=== PATIENT | male | born 1950 | race African-American/Black ===

== ENCOUNTER 2017-09-27 08:23 | Inpatient (IN) | payer MEDICARE ==
[2017-09-26 12:27] LABS: BASOPHILS # (AUTO) 0.1 (0.0-0.1); BASOPHILS % 0.7 % (0.0-1.0); EOSINOPHILS # (AUTO) 0.1 (0.0-0.4); EOSINOPHILS % 0.5 % (0.0-6.0); HEMOGLOBIN 16.3 g/dL (14.0-18.0); LYMPHOCYTES # (AUTO) 2.9 (1.0-3.2); LYMPHOCYTES % 31.2 % (18.0-39.1); MEAN CORPUSCULAR HEMOGLOBIN 34.2 pg (28-32); MEAN CORPUSCULAR HGB CONC 34.7 g/dL (31-35); MEAN CORPUSCULAR VOLUME 98.5 fL (81-99); MONOCYTES # (AUTO) 0.9 (0.2-0.8); MONOCYTES % 9.7 % (4.4-11.3); NEUTROPHILS # (AUTO) 5.4 (2.1-6.9); NEUTROPHILS % 57.6 % (38.7-80.0); PLATELET COUNT 130 x10e3/uL (140-360); RED BLOOD COUNT 4.77 x10e6/uL (4.3-5.7); RED CELL DISTRIBUTION WIDTH 12.8 % (11.7-14.4)
--- NOTE | 2017-09-26 12:40 | Diagnostic Imaging Report ---
PROCEDURE:CHEST 2 VIEWS TECHNIQUE:PA and lateral chest INDICATION:Preoperative evaluation for right hip surgery COMPARISON:None. FINDINGS: The lungs are clear and symmetrically inflated. No pleural effusions. Normal heart size. Tortuous descending thoracic aorta with mild aortic arch calcification. Incidentally 2-lead pacemaker; leads intact. Cholecystectomy clips. Acutely intact skeleton. CONCLUSION: Indwelling pacemaker without acute abnormality. Dictated by: Ramy Goode M.D. on 09/26/2017 at 12:43 Electronically approved by: Ramy Goode M.D. on 09/26/2017 at 12:43
[~2017-09-27] VITALS: Ht 170.2 cm; Wt 113.4 kg
[~2017-09-27 08:23] MED LIST: ALLOPURINOL100 MG PO; INDOMETHACIN25 MG PO; LOTREL 5-10 MG1 EACH PO; ROPIVACAINE 246.25 MG, EPINEPHRINE HCL 1:1000 0.5 MG, CLONIDINE HCL 0.08 MG, KETOROLAC ... INJ ONE
--- OUTSIDE RECORDS SUMMARY | 2017-09-27 08:25 | XMS REPORT | Clinical Summary ---
Author Author [facility] Address Unknown Phone Unavailable Care Team Providers Care Mold Technician Name Role Phone Spenser Sadler MD PCP Allergies Active Allergy Reactions Severity Noted Date Comments Sulfa (Sulfonamide 06/01/2016 Antibiotics) Current Medications Prescription Sig. Disp. Refills Start End Date Status Date ALLOPURINOL ORAL Take by mouth. Active amlodipine-benazepril Take 1 capsule by mouth Active (LOTREL) 10-20 mg per daily. capsule INDOMETHACIN ORAL Take by mouth. Active tamsulosin (FLOMAX) 0.4 Take 0.4 mg by mouth Active mg capsule,extended daily. release 24hr sodium,potassium,mag Please use as directed 2 Bottle 0 11/06/19 Discontin sulfates (SUPREP BOWEL 17 17 ued PREP KIT) 17.5-3.13-1.6 gram recon soln Active Problems Not on file Encounters Date Type Specialty Care Team Description 01/10/2017 [facility] Gastroenterology Juanjose Wallace MD Colon cancer screening Encounter 01/10/2017 Anesthesia Gastroenterology Nichol Godinez MD Event 01/10/2017 Procedure Pass Gastroenterology 01/10/2017 Surgery Gastroenterology Juanjose Wallace MD COLONOSCOPY with polypectomy 11/29/2016 Procedure Pass Gastroenterology 11/05/2016 Office Visit Gastroenterology Juanjose Wallace MD Colon cancer screening (Primary Dx); Abnormal liver function test; Chronic hepatitis C without hepatic coma after 09/26/2016 Family History Medical History Relation Name Comments No Known Problems Brother Stroke Father No Known Problems Maternal Aunt No Known Problems Maternal Grandfather No Known Problems Maternal Grandmother No Known Problems Maternal Uncle Diabetes Mother Heart disease Mother No Known Problems Paternal Aunt No Known Problems Paternal Grandfather No Known Problems Paternal Grandmother No Known Problems Paternal Uncle No Known Problems Sister Thompson's esophagus Neg Hx Breast cancer Neg Hx Celiac disease Neg Hx Cirrhosis Neg Hx Colon cancer Neg Hx Colon polyps Neg Hx Crohn's disease Neg Hx Cystic fibrosis Neg Hx Eating disorder Neg Hx Esophageal cancer Neg Hx GERD Neg Hx OIL LEASE BUYER Cancer Neg Hx Hemochromatosis Neg Hx Inflammatory bowel Neg Hx disease Irritable bowel syndrome Neg Hx Liver cancer Neg Hx Liver disease Neg Hx Pancreatic cancer Neg Hx Pancreatitis Neg Hx Rectal cancer Neg Hx Stomach cancer Neg Hx Ulcerative colitis Neg Hx Relation Name Status Comments Brother Father Maternal Aunt Maternal Grandfather Maternal Grandmother Maternal Uncle Mother Paternal Aunt Paternal Grandfather Paternal Grandmother Paternal Uncle Sister Social History Tobacco Use Types Packs/Day Years Used Date Current Every Day Smoker 0.5 Alcohol Use Drinks/Week oz/Week Comments No QUIT 1 YR AGO Sex Assigned at Date Recorded Not on file Last Filed Vital Signs Vital Sign Reading Time Taken Blood Pressure 160/93 01/10/2017 10:00 AM CDT Pulse 77 01/10/2017 10:00 AM CDT Temperature 37 C (98.6 F) 01/10/2017 9:35 AM CDT Respiratory Rate 23 01/10/2017 10:00 AM CDT Oxygen Saturation 97% 01/10/2017 10:00 AM CDT Inhaled Oxygen - - Concentration Weight 136 kg (300 lb) 01/10/2017 8:13 AM CDT Height 170.2 cm (5' 7") 01/10/2017 8:13 AM CDT Body Mass Index 46.99 01/10/2017 8:13 AM CDT Plan of Treatment Health Maintenance Due Date Last Done Comments COLON CANCER SCREENING 2000 SHINGRIX VACCINE (#1) 2000 ZOSTER VACCINE 2010 PNEUMOCOCCAL 2015 POLYSACCHARIDE VACCINE AGE 65 AND OVER PNEUMOCOCCAL-13 2015 INFLUENZA VACCINE 11/23/2017 Procedures Procedure Name Priority Date/Time Associated Diagnosis Comments COLONOSCOPY with 01/10/2017 Colon cancer screening polypectomy 9:00 AM CDT after 09/26/2016 Results * Surgical pathology request (01/10/2017 12:46 PM) Component Value Ref Range Surgical pathology report See link below for PDF Lab Report Specimen Performing [place] [facility] [facility] [address] [address] after 09/26/2016 Insurance Payer Benefit Subscriber ID Type Phone Address Plan / Group [facility] MEDICARE UNITED/CAR xxxxxxxxx HMO E LESLIE FUNEZ
--- OUTSIDE RECORDS SUMMARY | 2017-09-27 08:25 | XMS REPORT ---
Author Author [facility] Address Unknown Phone Unavailable Care Team Providers Care Eye Technician Name Role Phone ELIZA JONES Unavailable Unavailable Problems This patient has no known problems. Allergies, Adverse Reactions, Alerts This patient has no known allergies or adverse reactions. Medications This patient has no known medications. Results Test Description Test Time Test Comments Text Results Atomic Results Result Comments CHEST 2 VIEWS [place] [address] Patient Name: BANDAR ALMANZAR MR #: [id number] : 1950 Age/Sex: 67/M Req #: [id number] Adm Physician: Ordered by: JANAE HERNANDEZ MD Report #: [id number] Location: OR Room/Bed: Procedure: DX/ CHEST 2 VIEWS Exam Date: 09/26/17 Exam Time: 1225 REPORT STATUS: Signed PROCEDURE: CHEST 2 VIEWS TECHNIQUE: PA and lateral chest INDICATION: Preoperative evaluation for right hip surgery COMPARISON: None. FINDINGS: The lungs are clear and symmetrically inflated. No pleural effusions. Normal heart size. Tortuous descending thoracic aorta with mild aortic arch calcification. Incidentally 2-lead pacemaker; leads intact. Cholecystectomy clips. Acutely intact skeleton. CONCLUSION: Indwelling pacemaker without acute abnormality. Dictated by: Ban Goode M.D. on 09/26/2017 at 12:43 Electronically approved by: Ban Goode M.D. on 09/26/2017 at 12:43 Dictated By: BAN GOODE MD [id number] Transcribed By: JANEEN on 09/26/17 1243 COPY TO: JANAE HERNANDEZ MD
[2017-09-27] MEDS ORDERED: CELECOXIB 200 MG CAP ONE (08:49)
[2017-09-27] MEDS ORDERED: CEFAZOLIN SOD 2 GM/D5W 50ML 50 ML IV ONE (08:50)
[2017-09-27] MEDS ORDERED: DEXAMETHASONE SOD PHOS 10 MG/1 ML VIAL ONE (08:50)
[2017-09-27] MEDS ORDERED: GABAPENTIN 300 MG CAP ONE (08:50)
[2017-09-27] MEDS ORDERED: BUPIVACAINE 7.5MG/ML /DEXTROSE 82.5MG/ML 2 ML AMP INJ ONE (09:31)
[2017-09-27] MEDS ORDERED: TRANEXAMIC ACID 1,000 MG/10 ML ML ONE (09:49)
[2017-09-27] MEDS ORDERED: MUPIROCIN 2% OINT 22 GM TUBE ONE (09:49)
[2017-09-27] MEDS ORDERED: BACITRACIN 50,000 UNIT VIAL ONE (09:50)
[2017-09-27] MEDS ORDERED: ZOLPIDEM TARTRATE 5 MG TAB PO PRN (12:00)
[2017-09-27] MEDS ORDERED: HYDROCODONE/APAP 5MG-325MG TAB PO PRN (12:00)
[2017-09-27] MEDS: ACETAMINOPHEN 1000 MG/100 ML IV SCH ×2 (12:00→16:40)
[2017-09-27] MEDS ORDERED: DOCUSATE SODIUM 100 MG CAP PO PRN (12:00)
[2017-09-27] MEDS ORDERED: DIPHENHYDRAMINE HCL INJ 50 MG/ML VIAL IM/IV PRN (12:00)
[2017-09-27] MEDS ORDERED: PROMETHAZINE HCL (IM) 25 MG/ML VIAL INJ PRN (12:00)
[2017-09-27] MEDS ORDERED: KETOROLAC TROMETHAMINE 30 MG/ML VIAL IV PRN (12:00)
[2017-09-27] MEDS ORDERED: ACETAMINOPHEN 650 MG SUPP PR PRN (12:00)
[2017-09-27] MEDS ORDERED: ONDANSETRON HCL INJ 2 MG/ML VIAL IV PRN (12:00)
--- OUTSIDE RECORDS SUMMARY | 2017-09-27 12:29 | XMS REPORT | Clinical Summary ---
Author Author [facility] Address Unknown Phone Unavailable Care Team Providers Care Tail Puller Name Role Phone Spenser Sadler MD PCP [...] Date Type Specialty Care Team Description 01/10/2017 [facility] Gastroenterology Juanjose Wallace MD Colon cancer screening [...] Esophageal cancer Neg Hx GERD Neg Hx MYSQL DATABASE ADMINISTRATOR Cancer Neg Hx Hemochromatosis Neg Hx Inflammatory [...] for PDF Lab Report Specimen Performing Laboratory [facility] [place] [facility]PARTMENT OF PATHOLOGY AND GENOMIC MEDICINE [place] [place] [place] [address] after 09/26/2016 Insurance Payer Benefit Subscriber ID Type Phone Address Plan / Group [facility] MEDICARE UNITED/CAR xxxxxxxxx HMO E LESLIE FUNEZ
[2017-09-27] MEDS ORDERED: CEFAZOLIN SOD 1 GM/NS 50ML 50 ML IV SCH (14:00)
[2017-09-27] MEDS: SODIUM CHLORIDE 0.9% 1000ML 1,000 ML IV SCH ×2 (14:09→21:57)
[2017-09-27] MEDS: HYDROCODONE/APAP 7.5MG-325MG 1 EA TAB PO PRN ×2 (14:25→19:50)
[2017-09-27 15:32] VITALS: BP 125/74
[2017-09-27 16:00] VITALS: BP 134/72
[2017-09-27] MEDS: ASPIRIN 325 MG TAB PO SCH (16:40)
[2017-09-27] MEDS: CEFAZOLIN SOD 1 GM VIAL IV SCH (16:40)
[2017-09-27] MEDS: CELECOXIB 200 MG CAP PO SCH (16:40)
--- NOTE | 2017-09-27 16:57 | Diagnostic Imaging Report ---
PROCEDURE:X-RAY PELVIS, AP VIEW COMPARISON:None. INDICATIONS:POST OPERATIVE LEFT HIP SURGERY FINDINGS: See conclusion. CONCLUSION: 1. Status post left total hip replacement with intact orthopedic hardware. Satisfactory alignment on this limited AP view. 2. Postoperative soft tissue gas, drainage tube and metallic jaiden. 3. Respiratory structures is grossly unremarkable, without acute, displaced fracture or dislocation. Luke Farrar M.D. Dictated by: Luke Farrar M.D. on 09/27/2017 at 17:00 Electronically approved by: Luke Farrar M.D. on 09/27/2017 at 17:00
[2017-09-27] MEDS ORDERED: CELECOXIB 100 MG CAP PO SCH (17:00)
[2017-09-27 20:00] VITALS: BP 119/63
[2017-09-27] MEDS ORDERED: LIDOCAINE HCL 2% LOCAL INJ 5 ML SDV VIAL INJ ONE (20:03)
[2017-09-27] MEDS ORDERED: ACETAMINOPHEN 1000 MG/100 ML IV ONE (20:03)
[2017-09-27] MEDS ORDERED: DEXAMETHASONE SOD PHOS INJ 4 MG/ML VIAL ONE (20:03)
[2017-09-27] MEDS ORDERED: PROPOFOL IV EMULSION 10 MG/ML 20 ML VIAL ONE (20:03)
[2017-09-27] MEDS ORDERED: ONDANSETRON HCL INJ 2 MG/ML VIAL ONE (20:03)
[2017-09-27] MEDS ORDERED: MIDAZOLAM HCL 2 MG/2 ML VIAL ONE (20:18)
[2017-09-27] MEDS ORDERED: FENTANYL CITRATE/PF 100MCG/2 ML INJ ONE (20:18)
[2017-09-28] VITALS: BP 120/67
[2017-09-28] MEDS: ACETAMINOPHEN 1000 MG/100 ML IV SCH ×2 (00:30→05:24)
[2017-09-28] MEDS: CEFAZOLIN SOD 1 GM VIAL IV SCH ×2 (00:38→09:31)
[2017-09-28 04:00] VITALS: BP 140/79
[2017-09-28] MEDS: HYDROCODONE/APAP 7.5MG-325MG 1 EA TAB PO PRN ×2 (05:24→09:34)
[2017-09-28] MEDS ORDERED: PNEUMOCOCCAL VACCINE POLYVALENT 23 MCG/0.5 ML VIAL IM ONE (06:00)
[2017-09-28 06:46] LABS: HEMATOCRIT 38.3 % (38.2-49.6); HEMOGLOBIN 13.2 g/dL (14.0-18.0)
[2017-09-28] MEDS: SODIUM CHLORIDE 0.9% 1000ML 1,000 ML IV SCH (07:57)
[2017-09-28 08:00] VITALS: BP 122/73
[2017-09-28] MEDS ORDERED: INDOMETHACIN 25 MG CAP PO SCH (08:00)
[2017-09-28 08:18] VITALS: BP 122/73
[2017-09-28] MEDS ORDERED: ASPIRIN325 MG PO (08:51)
[2017-09-28] MEDS ORDERED: AMLODIPINE BESYLATE PO SCH (09:00)
[2017-09-28] MEDS ORDERED: BENAZEPRIL PO SCH (09:00)
[2017-09-28] MEDS ORDERED: AMLODIPINE BESYLATE 5 MG TAB PO SCH (09:00)
[2017-09-28] MEDS ORDERED: BENAZEPRIL HCL 10 MG TAB PO SCH (09:00)
[2017-09-28] MEDS ORDERED: [UNRECOGNIZED DRUG - OTHER] PO SCH (09:00)
[2017-09-28] MEDS ORDERED: ALLOPURINOL 100 MG TAB PO SCH (09:00)
--- NOTE | 2017-09-28 09:23 | Operative Report ---
DATE OF PROCEDURE: September 27, 2017 [employer] ATTORNEY: Jenaro Dennis PA-C The patient was brought to the operating room for induction of anesthesia. Throughout this case, my PA's assistance was necessary for retraction of soft tissue and positioning of the extremity. This allows for efficient and technically successful execution of the operation and is considered medically necessary. PREOPERATIVE DIAGNOSES 1. Avascular necrosis, left hip. 2. Morbid obesity. POSTOPERATIVE DIAGNOSES 1. Avascular necrosis, left hip. 2. Morbid obesity. PROCEDURE: Left total hip arthroplasty. *Added complexity due to body mass index equal to 41. 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 He complains of disabling pain and would like to proceed with a left total hip replacement. The risks and benefits of the procedure have been explained. The added challenges and risks for perioperative complications due to his body mass index of 41 have been discussed. The patient states he understands and wishes to proceed. DESCRIPTION OF PROCEDURE: The patient was brought to the operating room and given a spinal anesthetic. Some challenges were encountered obtaining the spinal. Ultimately, this was successful, and he was placed in the right lateral decubitus position. He received prophylactic antibiotics and tranexamic acid in the holding area. His left hip was prepped and draped in a sterile manner. Throughout the case, added time and personnel were necessary due to the patient's body mass index of 41. A preoperative time out was performed. A posterior approach was made to the left hip. Abundant subcutaneous adipose tissue was encountered. Hemostasis was obtained with electrocautery. A deep self-retaining Charnley retractor was placed. Care was taken to avoid injury to the sciatic nerve. A long-handled electric cauterizer was used to obtain further hemostasis in the posterior capsule and short external rotators. Challenges were encountered due to the altered deep surgical field. The posterior capsule was released, and the hip was dislocated. An oscillating saw was used to resect the femoral head. Subchondral collapse was noted. Acetabular retractors were placed. Additional soft-tissue releases were necessary to provide adequate visualization of the socket. A Melina [employer] system was used throughout the case. The socket was sequentially reamed to 55 mm. This accomplished bleeding, hemispherical, cancellous bone. A 56 mm outer diameter OsseoTi socket was then impacted into place. Excellent primary fixation was felt to be obtained, precluding the necessity of additional screw fixation. The hip had been thoroughly irrigated with a shower-tip pulsatile lavage. A portion of a 100 mL premixed pericapsular MADDIE injection was placed around the socket. A highly crosslinked polyethylene liner with a 36 mm inner diameter was then impacted into place. Care was taken to make sure that there was no evidence of soft-tissue interposition. The socket was then packed with a moistly soaked lap sponge. Attention was directed towards the proximal femur. A box-cutting osteotome and taper pin reamer were used to establish entry to the femoral canal. The Taperloc broaches were then impacted until a size-16 stem had good stability with trial reductions. A standard 36-mm neck and head were felt to provide optimal soft-tissue balancing, sikhism of limb length and stability. The hip was carefully put through an arc of motion to ensure stability. Trial implants were then removed. The hip was further irrigated with a shower-tip pulsatile lavage. The implants were seated, and a final reduction was performed. The posterior capsule was repaired with interrupted #2 Ethibond. The short external rotators were contracted and not repairable. The gluteal fascia was closed with #2 Ethibond. The skin was closed with subcuticular Vicryl and jaiden. Because of his abundant adipose, a Prevena wound VAC was applied with a dressing. The patient was returned to the supine position and transported to the recovery room in stable condition. Estimated blood loss was 150 mL. At the end of the procedure, all needle and sponge counts were correct. Job#: [id number]
[2017-09-28] MEDS: ASPIRIN 325 MG TAB PO SCH (09:31)
[2017-09-28] MEDS: CELECOXIB 200 MG CAP PO SCH (09:31)
[2017-09-28] MEDS ORDERED: ACETAMINOPHEN 1000 MG/100 ML IV PRN (12:00)
[2017-09-28 12:29] VITALS: BP 135/81
== END 2017-09-28 13:35 | disposition home health service (06) | DRG 470 ==
LOC: OR 08:23 → MED/SURG 12:27
PROVIDERS: ADMIT Specialist; ATTEND Specialist
PROC: 0SRB04A Replacement of Left Hip Joint with Ceramic on Polyethylene Synthetic Substitute, Uncemented, Open Approach (ICD-10-PCS; principal; 2017-09-27 11:30)
DX: M16.12 Unilateral primary osteoarthritis, left hip (principal); M87.052 Idiopathic aseptic necrosis of left femur; Z68.41 Body mass index [BMI] 40.0-44.9, adult; M19.031 Primary osteoarthritis, right wrist; E66.01 Morbid (severe) obesity due to excess calories; Z95.0 Presence of cardiac pacemaker; I10 Essential (primary) hypertension; D64.9 Anemia, unspecified
CPT/HCPCS: 36415; 71046; 72170; 85014; 85018; 85025; 86850; 86900; 88304; 90732; J0171; J0690; J1100; J1885; J2001; J2250; J2405; J2795; J7030